=== PATIENT | female | born 2000 | race Caucasian/White ===

== ENCOUNTER 2021-04-03 13:11 | Emergency (ER) | payer MEDICAID ==
[~2021-04-03] VITALS: Ht 157.5 cm; Wt 46.3 kg
[2021-04-03 13:11] VITALS: BP_SYST 108
[2021-04-03] MEDS ORDERED: ONDANSETRON 4 MG ODT TAB PO ONE (14:45)
[2021-04-03 15:16] LABS: BASOPHILS # (AUTO) 0.1 K/uL (0.0-0.2); BASOPHILS % (AUTO) 1.1 % (0.0-2.0); HEMATOCRIT 40.9 % (36-48); HEMOGLOBIN 13.8 g/dL (12.0-16.0); LYMPHOCYTES # (AUTO) 0.5 K/uL (1.0-5.5); LYMPHOCYTES % (AUTO) 5.8 % (20.5-51.5); MEAN CORPUSCULAR HEMOGLOBIN 27 pg (27-31); MEAN CORPUSCULAR HGB CONC 34 % (32-36); MEAN CORPUSCULAR VOLUME 81 fL (79.0-98.0); MONOCYTES # (AUTO) 0.2 K/uL (0.0-1.0); MONOCYTES % (AUTO) 2.2 % (1.7-9.3); NEUTROPHILS # (AUTO) 8.6 K/uL (1.8-7.7); NEUTROPHILS % (AUTO) 90.9 % (40.0-70.0); PLATELET COUNT (AUTO) 298 K/uL (130-430); RED BLOOD CELL COUNT(AUTO) 5.05 MIL/uL (4.2-6.2); RED CELL DISTRIBUTION WIDTH 13.4 % (9.0-15.0); WHITE BLOOD COUNT (AUTO) 9.4 K/uL (4.8-10.8)
[2021-04-03 15:42] LABS: BILIRUBIN,URINE NEGATIVE (NEGATIVE); BLOOD, URINE 3+ (NEGATIVE); COLOR,URINE YELLOW (YELLOW); GLUCOSE,URINE NEGATIVE (NEGATIVE); KETONES,URINE 3+ (NEGATIVE); LEUKOCYTE ESTERASE ,URINE NEGATIVE (NEGATIVE); NITRITE, URINE NEGATIVE (NEGATIVE); PROTEIN URINE NEGATIVE (NEGATIVE); UROBILINOGEN,URINE 0.2 (0.2-1.0)
[2021-04-03 15:52] LABS: ANION GAP 15 (5-15); CALCIUM 7.9 mg/dL (8.4-11.0); CHLORIDE 102 mmol/L (98-107); CREATININE 0.62 mg/dL (0.55-1.30); GLUCOSE 81 mg/dL (70-99); POTASSIUM 3.4 mmol/L (3.5-5.1); SODIUM SERUM 139 mmol/L (136-145); UREA NITROGEN, BLOOD 14 mg/dL (8-21)
[2021-04-03 15:58] LABS: ALANINE AMINOTRANSFERASE 19 U/L (12-78); ALBUMIN 4.2 g/dL (3.4-4.8); AMYLASE 103 U/L (0-100); ASPARTATE AMINOTRANSFERASE 16 U/L (10-37); LIPASE 89 U/L (73-393); TOTAL BILIRUBIN 0.6 mg/dL (0.0-1.0)
[2021-04-03 16:14] LABS: GFR AFRICAN AMERICAN 156 mL/min (>90)
[2021-04-03] MEDS ORDERED: ONDA-8 TL (16:17)
[2021-04-03] MEDS ORDERED: IBUP-1969 PO (16:17)
[2021-04-03 16:50] LABS: C-REACTIVE PROTEIN QUANT < 0.2 mg/dL (0-0.5)
[2021-04-03 17:01] LABS: CLARITY/URINE SLIGHTLY HAZY (CLEAR)
[2021-04-03 17:28] VITALS: BP_SYST 127
[2021-04-03 17:43] LABS: BACTERIA,URINE FEW /HPF (None Seen); MUCUS,URINE None Seen /LPF (None Seen); RBC,URINE 50-80 /HPF (0-3); WBC,URINE 0-3 /HPF (0-3)
== END 2021-04-03 17:30 | disposition home or self-care (01) ==
LOC: SED 13:11
DX: A05.9 Bacterial foodborne intoxication, unspecified (principal)
CPT/HCPCS: 36415; 80053; 81000; 81025; 82150; 83605; 83690; 84703; 85025; 86140; 99283; Q0162

== ENCOUNTER 2022-08-11 09:54 | Emergency (ER) | payer MEDICAID ==
[~2022-08-11] VITALS: Ht 149.9 cm; Wt 44.9 kg
[~2022-08-11 09:54] MED LIST: IBUP-1969 PO; ONDA-8 TL
[2022-08-11 10:08] VITALS: BP_SYST 125; PULSE 92; RESP 20; TEMP 98.3; O2SAT 98
[2022-08-11] MEDS ORDERED: NIRM1TAB5 PO (12:03)
[2022-08-11 13:09] VITALS: BP_SYST 125; PULSE 92; RESP 20; TEMP 98.3; O2SAT 98
== END 2022-08-11 13:08 | disposition home or self-care (01) ==
LOC: SED 09:54
DX: U07.1 COVID-19 (principal); J40 Bronchitis, not specified as acute or chronic; R05.9 Cough, unspecified; J02.9 Acute pharyngitis, unspecified; Z79.899 Other long term (current) drug therapy
CPT/HCPCS: 36415; 71045; 99284

== ENCOUNTER 2022-08-16 15:59 | Emergency (ER) | payer MEDICAID ==
[~2022-08-16] VITALS: Ht 160 cm; Wt 44.9 kg
[~2022-08-16 15:59] MED LIST changes: +NIRM1TAB5 PO
[2022-08-16 16:17] VITALS: BP_SYST 129; PULSE 96; RESP 18; TEMP 98; O2SAT 98
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
--- NOTE | 2022-08-16 17:45 | NUR ---
Dr Sanders evaluating patient at bedside
--- NOTE | 2022-08-16 18:12 | NUR ---
Patient given written and verbal discharge instructions and verbalizes understanding. ER MD discussed with patient the results and treatment provided. Patient in stable condition. ID arm band removed. No Rx given. Patient educated on pain management and to follow up with PMD. Pain Scale 2/10. Opportunity for questions provided and answered. Medication side effect fact sheet provided.
[2022-08-16 18:14] VITALS: BP_SYST 129; PULSE 96; RESP 18; TEMP 98; O2SAT 98
== END 2022-08-16 18:14 | disposition home or self-care (01) ==
LOC: SED 15:59
DX: S09.90XA Unspecified injury of head, initial encounter (principal); Z79.899 Other long term (current) drug therapy; V00.211A Fall from ice-skates, initial encounter; Y93.21 Activity, ice skating; Y92.89 Other specified places as the place of occurrence of the external cause; Y99.8 Other external cause status
CPT/HCPCS: 70450-TC; 76376; 99284